=== PATIENT | male | born 2000 | race Caucasian/White ===

== ENCOUNTER 2025-01-05 20:49 | Emergency (ER) | payer SELFPAY ==
[~2025-01-05] VITALS: Ht 175.3 cm; Wt 68.0 kg
[2025-01-05 21:13] VITALS: BP 137/90; PULSE 124; RESP 22; TEMP 36.7; O2SAT 98
[2025-01-06] MEDS ORDERED: MUPI22OI2 TP (01:51)
[2025-01-06] MEDS ORDERED: ACET-2708 MT (01:53)
[2025-01-06 03:11] VITALS: TEMP 98.1
[2025-01-06] MEDS: ACETAMINOPHEN 325MG TABLET PO ONE (03:11)
== END 2025-01-06 03:14 | disposition home or self-care (01) ==
LOC: ER 20:49
DX: S60.012A Contusion of left thumb without damage to nail, initial encounter (principal); S09.90XA Unspecified injury of head, initial encounter; Y08.89XA Assault by other specified means, initial encounter; Y93.89 Activity, other specified; Y92.89 Other specified places as the place of occurrence of the external cause; Y99.8 Other external cause status
CPT/HCPCS: 73140; 99284